=== PATIENT | male | born 1990 | race Caucasian/White ===

== ENCOUNTER 2016-08-27 12:47 | Emergency (ER) | payer BC ==
[~2016-08-27] VITALS: Ht 188 cm; Wt 84.0 kg
[2016-08-27 12:57] VITALS: Ht 188 cm; Wt 84.0 kg
[2016-08-27] MEDS ORDERED: IBUPROFEN 600 MG TAB PO ONE (13:30)
--- NOTE | 2016-08-27 13:50 | RADRPT ---
PROCEDURE: XR Hand 3 Views. CLINICAL INDICATION: Right hand pain and trauma TECHNIQUE: AP, oblique and lateral views of the left hand were obtained. COMPARISON: No prior studies are available for comparison. FINDINGS: The osseous structures appear intact. Posterior subluxation/dislocation of the base of the fifth me tacarpal in relation to the hamate identified. The remaining interosseous spaces appear unremarkabl e. No destructive bony lesions are seen. Soft tissues surrounding the hand appear normal. IMPRESSION: Posterior subluxation/dislocation of the base of the fifth metacarpal in relation to the carpal join t compartment. If there is high clinical suspicion for additional traumatic injury, further evaluation with CT shou ld be considered. RPTAT: AA .Augusto Monroy MD, Date Time Electronically viewed and signed by .Augusto Monroy MD, on 08/27/2016 13:50 .P/
[2016-08-27] MEDS ORDERED: LIDOCAINE 1% (MDV) 20 ML INJ SC ONE (14:00)
[2016-08-27] MEDS ORDERED: IBUP-1542 PO (15:11)
--- NOTE | 2016-08-27 15:16 | ERD ---
ER Documentation Chief Complaint Date/Time DATE: 08/27/16 TIME: 15:14 Chief Complaint Conmplains of right forearm pain and swelling HPI 25-year-old male presents with right hand pain after punching a wall. He is in a residential treatment center. He has restricted range of motion due to pain but no weakness. ROS All systems reviewed and are negative except as per history of present illness. 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 Neck: Full range of motion..~ No meningismus. Resp: Clear to auscultation bilaterally Cardio: Regular rate and rhythm, no murmurs Abd: Soft, non tender, non distended. Normal bowel sounds Skin: No petechiae or rashes Back: No midline or flank tenderness Ext: No cyanosis, or edema there is some tenderness and noticeable deformity at the right fifth carpometacarpal joint. There is no restricted range of motion weakness no bleeding or lacerations Neur: Awake and alert Psych: Normal Mood and Affect Results 24 hrs Current Medications Medications (Trade) Dose Ordered Sig/Bridgette Route PRN Reason Start Time Stop Time Status Last Admin Dose Admin Ibuprofen (Motrin) 600 mg ONCE ONCE PO 08/27/16 13:30 08/27/16 13:31 DC 08/27/16 13:15 Lidocaine (Xylocaine 1% (Mdv) 20 ml) 20 ml ONCE ONCE SC 08/27/16 14:00 08/27/16 14:01 DC Procedures/MDM X-ray Hand 3V interpreted by me: Scaphoid: [Normal] Bones: Possible tiny avulsions of base of fifth metacarpal. Joints: Appears to be dorsal subluxation of the carpometacarpal joint of the right fifth Foreign body: [None].. Subluxation dislocation of the carpometacarpal joint of the right fifth. Possible small fracture fragments. Procedure note having a hematoma block was performed on the right carpal metacarpal joint. Anesthesia was obtained. An attempted reduction was performed with out much change in clinical appearance of the deformity. Procedure was then abandoned after several times for Patient presents with a dislocation possible tiny avulsion fracture of the right fifth carpometacarpal joint. There is no evidence of open fracture infection. We discharged home with orthopedic follow-up this week. Is referred to local orthopedist but advised may need authorization from his primary care doctor. This information was relayed to his laboratory animal caretaker from his residential treatment facility. The patient was stable with no new complaints during the ER course. Clinically, there is no current evidence to suggest meningitis, sepsis, acute abdomen, pneumonia, acute coronary syndrome, pulmonary embolism, or any other emergent condition appearing to require further evaluation or hospitalization. There is no evidence of osteomyelitis, deficits currently. The patient should certainly return for any new or worsening symptoms per the aftercare instructions. They should otherwise follow- up with her primary care doctor for reevaluation this week. Departure Diagnosis: Primary Impression: Hand fracture, right Encounter type: initial encounter Fracture type: closed Qualified Code: S62.91XA - Hand fracture, right, closed, initial encounter Condition: Stable Patient Instructions: Dislocation, Other Joint, Fracture, Hand (Closed) Referrals: DIMITRY ORTIZ MD,IN LIVIER [facility]AG[facility] Hours: Tue-Tue 9:00 AM - 5:00 PM Additional Instructions: Likely small fracture associated with dislocation. See orthopedist within the next week for further evaluation and treatment. May need authorization from primary doctor for orthopedist visit SIMONE TORRES MD Aug 27, 2016 15:16
== END 2016-08-27 15:23 | disposition home or self-care (01) ==
LOC: FTE 12:47
DX: S62.91XA Unspecified fracture of right hand, initial encounter for closed fracture (principal); F17.210 Nicotine dependence, cigarettes, uncomplicated; W22.8XXA Striking against or struck by other objects, initial encounter; Y92.9 Unspecified place or not applicable